=== PATIENT | male | born 1950 | race Caucasian/White ===

== ENCOUNTER → 2016-05-04 | Outpatient (CLI) | payer SELFPAY ==
--- NOTE | 2016-05-04 17:56 | CT ---
HISTORY: Screening, strong family history Cardiac calcium scoring. Technique: Multiple axial images of the chest were obtained on a [address] from the aortic arch to the base of the heart with noncontrast prospective gating. AEC was utilized. Findings: A total calcium score of 709 is observed. The score results in high likelihood of coronary events g iven the age and sex matched cohort analysis. Extensive atherosclerotic plaque is present. The bob ent is between the 75th and 90th percentile for age and sex. Thoracic spondylosis is noted. Surrounding soft tissues are unremarkable. IMPRESSION: Extensive atherosclerotic plaque. Reported By:
== END ==
LOC: RAD 13:16
PROVIDERS: ATTEND Nurse Practitioner Family
DX: Z13.6 Encounter for screening for cardiovascular disorders (principal)